=== PATIENT | female | born 1975 | race Two or more races ===

== ENCOUNTER → 2017-01-18 | Day surgery (SDC) | payer BC ==
[~2017-01-18] MED LIST: IV RINGERS,LACTATED 1000ML 1,000 ML IV SCH; LIDOCAINE 1% 1 ML SYRINGE. ID PRN; LIDOCAINE 2% PF Vial for OR 5 ML VIAL. ONE; MORPHINE SULFATE 2 MG/ML DISP.SYRIN. IV PRN; ONDANSETRON PF 4 MG/2 ML VIAL. IV PRN; PROCHLORPERAZINE 10 MG/2 ML VIAL. IV PRN; PROPOFOL 20 ML IV ONE; PROPOFOL 40 ML IV ONE; fentaNYL PF VIAL 100 MCG/2 ML VIAL IV PRN
[2017-01-18 11:40] VITALS: BP 120/79
--- NOTE | 2017-01-24 11:05 | PATHOLOGY ---
PATHOLOGY REPORT * * * * * * * * FINAL DIAGNOSIS: A. Small bowel biopsy: - No significant pathologic abnormalities. B. Gastric antral biopsy: - Consistent with reactive gastropathy. C. Distal esophageal biopsy: - Segments of gastric mucosa showing mild chronic inflammation. D. Terminal ileum biopsy: - No significant pathologic abnormalities. E. Sigmoid colon biopsy: - Mild chronic inflammation. F. Rectal polyp biopsy: - Consistent with prominent fold. COMMENT: Sections of the small bowel biopsy reveal segments of duodenal mucosa. Where best oriented, the mucosal villi appear normal. There are no sprue-like changes or significant inflammatory changes. Sections of the gastric biopsy reveal gastric antral mucosa showing congestion, foveolar hyperplasia, and no significant inflammation. An immunoperoxidase stain for Helicobacter is obtained. There are no Helicobacter organisms. The findings are consistent with a reactive gastropathy. Sections of the distal esophageal biopsy reveal segments of gastric mucosa showing congestion and mild superficial chronic inflammation. There is no squamous esophageal mucosa. There is no evidence of Washburn's change, dysplasia or malignancy. Sections of the terminal ileum biopsy reveal segments of small intestine mucosa containing several mucosal associated lymphoid aggregates. There are no sprue-like changes or significant inflammatory changes. Sections of the sigmoid colon biopsy reveal segments of colonic mucosa showing mild chronic inflammation. The colonic glands are regularly distributed. There is no crypt architectural distortion, crypt abscesses, or granulomas. 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 Sections of the rectal polyp biopsy reveal a segment of rectal mucosa consistent with prominent fold. There are no adenomatous changes or evidence of malignancy. Special stain performed: Immunoperoxidase for Helicobacter on B1. REPORT ELECTRONICALLY SIGNED BY: Hector Block M.D. DATE/TIME: 01/24/2017 08:38 * * * * * * * * GROSS PATHOLOGY: A. Received in formalin labeled "[place] Tamiko, small bowel biopsy," are three segments of eller soft tissue measuring 0.7 x 0.7 x 0.1 cm in aggregate dimensions and ranging from 0.1 to 0.7 cm in maximum dimension. The specimen is submitted entirely in cassette A1. B. Received in formalin labeled "[place] Tamiko, gastric antrum biopsy," are two segments of eller soft tissue measuring 0.6 x 0.3 x 0.1 cm in aggregate dimensions and ranging from 0.1 to 0.6 cm in maximum dimension. The specimen is submitted entirely in cassette B1. C. Received in formalin labeled "[place] Morrison, distal esophagus biopsy," are two segments of eller soft tissue measuring 0.7 x 0.5 x 0.1 cm in aggregate dimensions and ranging from 0.5 to 0.7 cm in maximum dimension. The specimen is submitted entirely in cassette C1. D. Received in formalin labeled "[place] Morrison, terminal ileum biopsies," are two segments of eller soft tissue measuring 0.6 x 0.5 x 0.1 cm in aggregate dimensions and ranging from 0.5 to 0.6 cm in maximum dimension. The specimen is submitted entirely in cassette D1. E. Received in formalin labeled "[place] Morrison, sigmoid biopsies," are two segments of eller soft tissue measuring 0.6 x 0.5 x 0.1 cm in aggregate dimensions and measuring 0.5 cm each in maximum dimension. The specimen is submitted entirely in cassette E1. F. Received in formalin labeled "[place] Morrison, rectal polyp biopsy," is a segment of eller soft tissue measuring 0.5 cm in maximum dimension. The specimen is submitted entirely in cassette F1. ([facility]; 01/19/2017) INITIAL CPT CODE(S): A; 16978 B; 68642, 90953 C; 16825 D; 28495 E; 95667 F; 61271 Professional services performed [place] [facility] [place] [address] Technical services performed by [facility] at [address] [place] [address]. SPECIMEN(S) RECEIVED: A.Small bowel biopsy B.Gastric antrum biopsy C.Distal esophagus biopsy D.Terminal ileum biopsy E.Sigmoid biopsies F.Rectal polyp biopsy CLINICAL HISTORY: Heartburn, melena, diverticulosis PATIENT: CHAPINCITO MORRISON /AGE: 905/16/1975 (Age: 41) PATIENT #: [id number] ALT CASE #: SPECIMEN COLLECTION DATE: 01/18/2017 SPECIMEN RECEIVED DATE: 01/18/2017 [facility] - [address] [place] [address] - PHONE: [phone] * * * END OF REPORT * * *
== END | disposition home or self-care (01) ==
LOC: ENDOS 09:05
PROVIDERS: ATTEND Internal Medicine Gastroenterology
DX: K57.32 Diverticulitis of large intestine without perforation or abscess without bleeding (principal); K21.0 Gastro-esophageal reflux disease with esophagitis; K62.1 Rectal polyp; K64.0 First degree hemorrhoids; K57.30 Diverticulosis of large intestine without perforation or abscess without bleeding; K31.89 Other diseases of stomach and duodenum; E78.00 Pure hypercholesterolemia, unspecified; Z80.3 Family history of malignant neoplasm of breast; Z83.71 Family history of colonic polyps; Z88.6 Allergy status to analgesic agent; Z91.040 Latex allergy status
CPT/HCPCS: 43239; 45380; J2704